=== PATIENT | female | born 1955 | race Caucasian/White ===

== ENCOUNTER 2021-12-02 10:18 | Outpatient (CLI) | payer MEDICARE, BC | END 2021-12-02 10:19 | disposition home or self-care (01) | LOC: CSHMAMMO 10:18 | PROVIDERS: ATTEND Obstetrics & Gynecology | DX: Z12.31 Encounter for screening mammogram for malignant neoplasm of breast (principal) | CPT/HCPCS: 77063; 77067 ==

== ENCOUNTER 2023-04-26 15:32 | Outpatient (CLI) | payer MEDICARE, BC | END 2023-04-26 15:33 | disposition home or self-care (01) | LOC: CSHMAMMO 15:32 | PROVIDERS: ATTEND Obstetrics & Gynecology | DX: Z12.31 Encounter for screening mammogram for malignant neoplasm of breast (principal) | CPT/HCPCS: 77063; 77067 ==

== ENCOUNTER 2024-05-19 13:17 | Outpatient (CLI) | payer MEDICARE | END 2024-05-19 13:18 | disposition home or self-care (01) | LOC: CSHMAMMO 13:17 | PROVIDERS: ATTEND Family Medicine | DX: Z12.31 Encounter for screening mammogram for malignant neoplasm of breast (principal) | CPT/HCPCS: 77063; 77067 ==

== ENCOUNTER 2024-06-15 11:21 | Outpatient (CLI) | payer MEDICARE | END 2024-06-15 11:22 | disposition home or self-care (01) | LOC: CSHMAMMO 11:21 | PROVIDERS: ATTEND Family Medicine | DX: Z78.0 Asymptomatic menopausal state (principal); M85.89 Other specified disorders of bone density and structure, multiple sites | CPT/HCPCS: 77080 ==

== ENCOUNTER 2025-03-05 16:40 | Outpatient (CLI) | payer MEDICARE | END 2025-03-05 16:41 | disposition home or self-care (01) | LOC: CSHCT 16:40 | PROVIDERS: ATTEND Family Medicine | DX: R55 Syncope and collapse (principal); R42 Dizziness and giddiness; Z86.73 Personal history of transient ischemic attack (TIA), and cerebral infarction without residual deficits | CPT/HCPCS: 70450 ==